=== PATIENT | female | born 1950 | race Caucasian/White ===

== ENCOUNTER 2017-06-01 11:23 | Day surgery (SDC) | payer OTHER, BC ==
[2017-05-28 15:00] VITALS: BMI 25.0
[2017-06-01] MEDS ORDERED: PROPOFOL 20 ML ONE (12:54)
[2017-06-01 13:44] VITALS: TEMP 98
[2017-06-01 13:50] VITALS: BP 124/59; PULSE 68
== END 2017-06-01 13:45 | disposition home or self-care (01) ==
LOC: FASU 11:23
PROVIDERS: ATTEND Internal Medicine Gastroenterology
PROC: 0DJD8ZZ Inspection of Lower Intestinal Tract, Via Natural or Artificial Opening Endoscopic (ICD-10-PCS; principal; 2017-06-01 12:50)
DX: Z12.11 Encounter for screening for malignant neoplasm of colon (principal); Z80.0 Family history of malignant neoplasm of digestive organs; K57.30 Diverticulosis of large intestine without perforation or abscess without bleeding

== ENCOUNTER 2022-02-26 11:04 | Emergency (ER) | payer OTHER, BC ==
[2022-02-26 11:10] VITALS: BP 141/74; PULSE 73; RESP 20; TEMP 98.8; BMI 23.6
[2022-02-26] MEDS ORDERED: KETOROLAC TROMETHAMINE 30 MG/1 ML VIAL IM ONE (11:13)
[2022-02-26] MEDS ORDERED: METHOCARBAMOL 500 MG TABLET PO ONE (11:13)
[2022-02-26] MEDS ORDERED: ACETAMINOPHEN 325 MG TABLET (FP) PO ONE (11:13)
[2022-02-26] MEDS ORDERED: METHOCARBAMOL 500 MG TABLET ONE (11:29)
[2022-02-26] MEDS ORDERED: KETOROLAC TROMETHAMINE 15 MG/ML VIAL ONE (11:29)
[2022-02-26] MEDS ORDERED: ACETAMINOPHEN 325 MG TABLET (FP) ONE (11:29)
== END 2022-02-26 12:02 | disposition home or self-care (01) ==
LOC: FER 11:04
PROC: 3E023GC Introduction of Other Therapeutic Substance into Muscle, Percutaneous Approach (ICD-10-PCS; principal; 2022-02-26)
DX: M25.531 Pain in right wrist (principal)
CPT/HCPCS: 99284-25

== ENCOUNTER 2022-04-06 08:13 | Emergency (ER) | payer OTHER, BC ==
[2022-04-06] MEDS ORDERED: KETOROLAC TROMETHAMINE 30 MG/1 ML VIAL IM ONE ×2 (08:19→09:15)
[2022-04-06 09:03] VITALS: BP 144/64; PULSE 72; RESP 18; TEMP 98.1; BMI 24.5
[2022-04-06] MEDS ORDERED: KETOROLAC TROMETHAMINE 30 MG/1 ML VIAL ONE (09:20)
== END 2022-04-06 09:49 | disposition home or self-care (01) ==
LOC: MERGE 08:13 → FER 08:13
PROC: 3E023GC Introduction of Other Therapeutic Substance into Muscle, Percutaneous Approach (ICD-10-PCS; principal; 2022-04-06)
DX: M79.675 Pain in left toe(s) (principal)
CPT/HCPCS: 73630-TC-LT; 73660-TC-LT-FY; 99284-25

== ENCOUNTER 2023-09-03 07:22 | Day surgery (SDC) | payer OTHER, BC ==
[2023-08-28 16:30] VITALS: BMI 26.0
[2023-09-03] MEDS ORDERED: PROPOFOL 80 ML ONE (07:27)
[2023-09-03 07:47] VITALS: RESP 18
[2023-09-03 09:06] VITALS: TEMP 97.2
[2023-09-03 09:37] VITALS: BP 128/76; PULSE 78
== END 2023-09-03 09:35 | disposition home or self-care (01) ==
LOC: FASU-ENDO 07:22
PROVIDERS: ATTEND Internal Medicine Gastroenterology
PROC: 0DBK8ZX Excision of Ascending Colon, Via Natural or Artificial Opening Endoscopic, Diagnostic (ICD-10-PCS; principal; 2023-09-03 08:29)
DX: Z12.11 Encounter for screening for malignant neoplasm of colon (principal); D12.2 Benign neoplasm of ascending colon; K57.30 Diverticulosis of large intestine without perforation or abscess without bleeding; Z83.719 Family history of colon polyps, unspecified
CPT/HCPCS: 88305-TC

== ENCOUNTER 2025-02-17 06:01 | Day surgery (SDC) | payer OTHER, BC ==
[2025-02-15 15:33] VITALS: BMI 25.9
[2025-02-17] MEDS ORDERED: BUPIVACAINE HCL/PF 0.5% (5MG/ML) 10 ML VIAL ONE (07:21)
[2025-02-17] MEDS ORDERED: TRIAMCINOLONE ACET 40MG/1ML VIAL ONE (07:21)
[2025-02-17] MEDS ORDERED: DEXAMETHASONE SOD PHOSPHATE 10 MG/1 ML VIAL ONE (07:22)
[2025-02-17] MEDS ORDERED: BUPIVACAINE HCL/PF 0.75% 10 ML VIAL ONE (07:22)
[2025-02-17] MEDS ORDERED: LIDOCAINE HCL/PF 1% SDV 5ML VIAL ONE ×2 (07:22→09:12)
[2025-02-17] MEDS ORDERED: ACETAMINOPHEN 500 MG TABLET (FP) PO PRN (08:47)
[2025-02-17 09:17] VITALS: TEMP 97.3
[2025-02-17] MEDS: BUPIVACAINE HCL/PF 0.5% (5MG/ML) 10 ML VIAL IJ ONE (09:44)
[2025-02-17 10:20] VITALS: BP 143/69; PULSE 66; RESP 22
== END 2025-02-17 10:47 | disposition home or self-care (01) ==
LOC: JASU-SURG 06:01
PROVIDERS: ATTEND Pain Medicine Pain Medicine
PROC: 3E0T33Z Introduction of Anti-inflammatory into Peripheral Nerves and Plexi, Percutaneous Approach (ICD-10-PCS; 2025-02-17)
PROC: 3E0T3BZ Introduction of Anesthetic Agent into Peripheral Nerves and Plexi, Percutaneous Approach (ICD-10-PCS; principal; 2025-02-17 10:30)
DX: M47.812 Spondylosis without myelopathy or radiculopathy, cervical region (principal)
CPT/HCPCS: 76000-TC-FY; J1100

== ENCOUNTER 2025-04-07 06:05 | Day surgery (SDC) | payer OTHER, BC ==
[2025-04-07 13:06] VITALS: TEMP 97.3
[2025-04-07] MEDS: BUPIVACAINE HCL/PF 0.5% (5MG/ML) 10 ML VIAL IJ ONE (13:24)
[2025-04-07 15:27] VITALS: BP 122/78; PULSE 70; RESP 18
== END 2025-04-07 14:06 | disposition home or self-care (01) ==
LOC: JASU-SURG 06:05
PROVIDERS: ATTEND Pain Medicine Pain Medicine
PROC: 3E0T33Z Introduction of Anti-inflammatory into Peripheral Nerves and Plexi, Percutaneous Approach (ICD-10-PCS; 2025-04-07)
PROC: 3E0T3BZ Introduction of Anesthetic Agent into Peripheral Nerves and Plexi, Percutaneous Approach (ICD-10-PCS; principal; 2025-04-07 12:45)
DX: M47.812 Spondylosis without myelopathy or radiculopathy, cervical region (principal)
CPT/HCPCS: 76000-TC-FY